=== PATIENT | male | born 1990 | race American Indian/Alaskan Native ===

== ENCOUNTER 2022-02-11 11:43 | Emergency (ER) | payer MEDICAID ==
--- NOTE | 2022-02-11 12:24 | Emergency Department Report ---
ED General Adult HPI - General Chief complaint: Psych Stated complaint: EVALUATION PUI?: No Time Seen by Provider: 02/11/22 12:06 Source: patient, EMS Mode of arrival: Ambulatory Limitations: No Limitations - History of Present Illness Initial comments: Pt here for MICHELLE shea, pt is transgender female with C/O SI and states she has been kicked out of her apartment complex -: unknown Severity scale (0 -10): 0 Consistency: constant Worsens with: none - Related Data Allergies Allergy/AdvReac Type Severity Reaction Status Date / Time No Known Allergies Allergy Unverified 02/11/22 18:44 ED Review of Systems ROS: Stated complaint: EVALUATION Other details as noted in HPI Constitutional: denies: chills, fever Eyes: denies: eye pain, eye discharge, vision change ENT: denies: ear pain, throat pain Respiratory: denies: cough, shortness of breath, wheezing Cardiovascular: denies: chest pain, palpitations Endocrine: no symptoms reported Gastrointestinal: denies: abdominal pain, nausea, diarrhea Genitourinary: denies: urgency, dysuria Musculoskeletal: denies: back pain, joint swelling, arthralgia Skin: denies: rash, lesions Neurological: denies: headache, weakness, paresthesias Psychiatric: denies: anxiety, depression Hematological/Lymphatic: denies: easy bleeding, easy bruising ED Past Medical Hx - Past Medical History Hx Diabetes: Yes ED Physical Exam - General Limitations: No Limitations General appearance: alert, anxious - Head Head exam: Present: atraumatic, normocephalic - Eye Eye exam: Present: normal appearance - ENT ENT exam: Present: mucous membranes moist - Neck Neck exam: Present: normal inspection - Respiratory Respiratory exam: Present: normal lung sounds bilaterally. Absent: respiratory distress - Cardiovascular Cardiovascular Exam: Present: regular rate, normal rhythm. Absent: systolic murmur, diastolic murmur, rubs, gallop - GI/Abdominal GI/Abdominal exam: Present: soft, normal bowel sounds - Rectal Rectal exam: Present: deferred - Extremities Exam Extremities exam: Present: normal inspection - Back Exam Back exam: Present: normal inspection - Neurological Exam Neurological exam: Present: alert, oriented X3 - Psychiatric Psychiatric exam: Present: depressed, suicidal ideation - Skin Skin exam: Present: warm, dry, intact, normal color. Absent: rash ED Course Vital Signs 02/11/22 02/11/22 02/11/22 11:52 13:00 20:06 Temperature 97.8 F 98.2 F 98.6 F Pulse Rate 105 H 96 H 81 Respiratory 18 14 18 Rate Blood Pressure 133/51 116/90 136/77 [Left] O2 Sat by Pulse 97 99 98 Oximetry 02/12/22 02/12/22 02/12/22 02:42 09:15 10:50 Temperature 97.5 F L 97.8 F Pulse Rate 63 84 Respiratory 18 20 20 Rate Blood Pressure 124/65 141/88 [Left] O2 Sat by Pulse 98 98 100 Oximetry ED Medical Decision Making - Lab Data Result diagrams: 02/11/22 12:53 02/11/22 12:53 Critical care attestation.: If time is entered above; I have spent that time in minutes in the direct care of this critically ill patient, excluding procedure time. ED Disposition Clinical Impression: Suicidal ideation Disposition: HOME / SELF CARE / HOMELESS Is pt being admited?: No Does the pt Need Aspirin: No Condition: Stable Instructions: Persistent Depressive Disorder, Adult, Suicidal Feelings: How to Help Yourself Additional Instructions: OUTPATIENT MENTAL HEALTH RESOURCES [facility], [facility] Urszula Doshi MD: [address], [address] [place] [address] [place] [address] [place]: [facility] [address] [place] [address] [place] [address] [phone] [facility]: [facility] Healthcare: [address] [facility] [address] [place] [address] [place] [address] [facility] [id number] [facility]: Andrea Velasquez MD: [address] [facility] [address] [facility] [id number] [facility]: [address] [place], [place] [id number] [phone] [facility]: [phone] Referrals: PRIMARY CAREMD [Primary Care Provider] - 3-5 Days
[2022-02-11 13:00] LABS: Color,Urine Yellow (Yellow)
[2022-02-11 13:02] LABS: Mucus,Urine FEW /HPF
[2022-02-11 13:16] LABS: Amphetamine Screen,Urine Negative; Benzodiazepines Screen,Urine Negative; Cannabinoid Screen,Urine Negative; Cocaine Screen,Urine Negative; Methadone Screen,Urine Negative; Opiate Screen,Urine Negative
[2022-02-11 13:44] LABS: Basophils # (Auto) 0.1 K/mm3 (0.0-0.1); Basophils % (Auto) 1.1 % (0.0-1.8); Eosinophils # (Auto) 0.2 K/mm3 (0.0-0.4); Eosinophils % (Auto) 2.4 % (0.0-4.3); Hematocrit 40.8 % (35.5-45.6); Hemoglobin 13.7 gm/dl (11.8-15.2); Lymphocytes # (Auto) 2.1 K/mm3 (1.2-5.4); Lymphocytes % (Auto) 22.5 % (13.4-35.0); Mean Corpuscular HGB Conc 34 % (32-34); Mean Corpuscular Volume 88 fl (84-94); Monocytes # (Auto) 0.6 K/mm3 (0.0-0.8); Monocytes % (Auto) 6.9 % (0.0-7.3); Platelet Count 328 K/mm3 (140-440); Red Blood Count 4.64 M/mm3 (3.65-5.03); Red Cell Distribution Width 14.4 % (13.2-15.2)
[2022-02-11 14:05] LABS: BUN/Creatinine Ratio 11; Blood Urea Nitrogen 9 mg/dL (9-20); Calcium 10.8 mg/dL (8.4-10.2)
[2022-02-11 14:06] LABS: Hemolysis Index 16
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
[2022-02-12 10:51] VITALS: BP 141/88
--- NOTE | 2022-02-12 12:10 | Emergency Department Report ---
Blank Doc - Documentation Documentation: Is a 31-year-old transgender female who presented with suicidal ideations. Everton lopez evaluated at bedside, and remained calm and did not appear depressed and this denied suicidal ideations. Patient was seen by mental health, who cleared the patient from a psychiatric perspective. Patient had been previously medically cleared, and has had no acute issues during the ED stay, so patient's 1013 will be rescinded and patient will be discharged home.
== END 2022-02-12 15:13 | disposition home or self-care (01) ==
LOC: ED 11:43
DX: R45.851 Suicidal ideations (principal); E11.9 Type 2 diabetes mellitus without complications
CPT/HCPCS: 36415; 80048; 80307; 80320; 81001; 85025; 99284; G0480